=== PATIENT | female | born 2000 | race Caucasian/White ===

== ENCOUNTER → 2021-01-10 | Outpatient (CLI) | payer BC, OTHER ==
[~2021-01-10] MED LIST: CETI10CH PO; PERCOCET PO; TEST200I14 SC; VENL37.598 PO
== END ==
LOC: M LABSMTC 10:30
PROVIDERS: ATTEND Anesthesiology
DX: Z01.818 Encounter for other preprocedural examination (principal); Z11.52 Encounter for screening for COVID-19

== ENCOUNTER 2021-01-15 07:44 | Observation (INO) | payer BC, OTHER ==
[~2021-01-15] VITALS: Ht 160 cm; Wt 76.7 kg
[~2021-01-15 07:44] MED LIST changes: +HEPARIN SOD (PORCINE) 5000UNITS/ML 1ML VIAL/SYRINGE SQ ONE; +LIDOCAINE 1% MDV 20ML VIAL SQ PRN; +LR 1,000 ML IV ONE; -PERCOCET PO; +ceFAZolin SOD 2 GM in IV 1 EA IV ONE
[2021-01-15] MEDS ORDERED: MIDAZOLAM INJ 2MG/2ML VIAL (J2250 PER 1MG) As Ordered ONE (08:39)
[2021-01-15] MEDS ORDERED: LIDOCAINE 2% 100MG/5ML SDV (FOR ANES.) As Ordered ONE (08:39)
[2021-01-15] MEDS ORDERED: ROCURONIUM BROMIDE 50 MG/5 ML VIAL As Ordered ONE (08:39)
[2021-01-15] MEDS ORDERED: ONDANSETRON 4MG/2ML VIAL As Ordered ONE ×2 (08:39→11:24)
[2021-01-15] MEDS ORDERED: dexameTHASONE 4 MG/ML 1ML VIAL (J1100 PER 1MG) As Ordered ONE (08:39)
[2021-01-15] MEDS ORDERED: propofoL 200 MG/20 ML VIAL As Ordered ONE (08:39)
[2021-01-15] MEDS ORDERED: fentaNYL 250 MCG/5 ML INJECTION (J3010) As Ordered ONE (08:39)
[2021-01-15] MEDS ORDERED: BUPIVACAINE LIPOSOME/PF 1.3% 20ML VIAL (13.3MG/ML)(EXPAREL)(C9290 PER1MG) As Ordered ONE (09:42)
[2021-01-15] MEDS ORDERED: GENTAMICIN SULF 80MG/2ML VIAL As Ordered ONE (09:42)
[2021-01-15] MEDS ORDERED: LIDOCAINE 1% MDV 20ML VIAL As Ordered ONE (09:43)
[2021-01-15] MEDS ORDERED: EPINEPHrine INJ 1 MG/ML 1ML AMP As Ordered ONE (09:43)
[2021-01-15] MEDS ORDERED: ePHEDrine SULFATE 25 MG/5 ML(5MG/ML) SYRINGE As Ordered ONE ×3 (11:05→12:08)
[2021-01-15] MEDS ORDERED: ACETAMINOPHEN 1000MG 100ML IV BTL (OFIRMEV) (J0131 PER 10MG) As Ordered ONE (11:12)
[2021-01-15] MEDS ORDERED: LACRILUBE (AKWA TEARS) OPHTH OINT 3.5 GM As Ordered ONE (11:12)
[2021-01-15] MEDS ORDERED: HYDROmorphone HCL 2 MG/ML 1ML VIAL As Ordered ONE (11:24)
[2021-01-15] MEDS ORDERED: SUGAMMADEX SODIUM 500 MG/5 ML VIAL (BRIDION) As Ordered ONE (11:24)
[2021-01-15] MEDS ORDERED: PHENYLephrine 500MCG 5ML (100MCG/ML) SYRINGE As Ordered ONE (11:51)
[2021-01-15] MEDS ORDERED: ESMOLOL INJ 100MG/10ML VIAL As Ordered ONE (15:03)
--- NOTE | 2021-01-15 15:04 | POST-OPPD ---
Postoperative Procedure Note Date Of Procedure: Jan 15, 2021 PREOPERATIVE DIAGNOSIS: Bilateral breast hypertrophy, gender dysphoria POSTOPERATIVE DIAGNOSIS: same PROCEDURE: Chest masculinization procedure with subcutaneous lipectomy via suction assisted lipectomy with direct excision. SURGEON: Dr Olsen ANESTHESIA: General ESTIMATED BLOOD LOSS: 150 cc FINDINGS: female chest distribution SPECIMENS: Right breast 148 gm, liposuction fluid 300 cc. Left breast 226 gm liposuction fluid 200 cc. COMPLICATIONS: none REPLACED: none DRAINS: 10 mm DAVIS x 2 POSTOPERATIVE CONDITION: stable LEOPOLDO OLSEN DO Jan 15, 2021 15:04
[2021-01-15] MEDS ORDERED: ACETAMINOPHEN TAB 650MG DOSE (2X325MG) PO PRN (15:05)
[2021-01-15] MEDS ORDERED: ONDANSETRON 4MG/2ML VIAL IV PRN ×2 (15:05→15:20)
[2021-01-15] MEDS ORDERED: PERCOCET 5MG/325MG TAB PO PRN (15:05)
--- NOTE | 2021-01-15 15:05 | ROOPDOC ---
[facility] Report Of Operation Report of Operation DATE OF PROCEDURE: 01/15/21 PREOPERATIVE DIAGNOSIS: Bilateral breast hypertrophy, gender dysphoria POSTOPERATIVE DIAGNOSIS: same PROCEDURE: Chest masculinization procedure with subcutaneous lipectomy via suction assisted lipectomy with direct excision. SURGEON: Dr Olsen ANESTHESIA: General ESTIMATED BLOOD LOSS: 150 cc FINDINGS: female chest distribution SPECIMENS: Right breast 148 gm, liposuction fluid 300 cc. Left breast 226 gm liposuction fluid 200 cc. COMPLICATIONS: none REPLACED: none DRAINS: 10 mm DAVIS x 2 POSTOPERATIVE CONDITION: stable DESCRIPTION OF PROCEDURE: DESCRIPTION OF PROCEDURE: This is a 20-year-old transgender male who presents with female chest distribution. Patient is scheduled for chest masculinization procedure via bilateral subcutaneous mastectomies using suction assisted lipectomy and direct excision. Risks, benefits, and alternatives of the procedure discussed with patient in details and he is ready to proceed.On the day of surgery, he was marked in the upright position and then he was brought into the operating room, placed in supine position. Preoperative antibiotics given, sequential stockings placed on the lower calves. General anesthesia was induced. He was prepped and draped in the usual sterile fashion. We started our procedure with making a stab incision on the right lateral chest. Tumescent solution was infiltrated in the left breast, 400 mL total. Vaser Liposuction was used for melting down the fat and breaking out the scar tissue on the right side, and we used 3.7 three-ring cannula 5 rings with 80% of the power for 3.5 minutes. After that part of the procedure was completed, we used regular suction-assisted lipectomy to remove the rest of the liposuction, total 300 cc. Then, we made an infra-areolar incision, dissection of glandular tissue was started out using electrocautery under direct vision with a lighted retractor. The breast tissue was completely excised using electrocautery total 148 g. The pectoralis muscle was in good condition. The skin was in good condition. Hemostasis was obtained using electrocautery. Wound is irrigated with normal saline solution. Then, 10 mm DAVIS drain was placed through the initial stab incision that was done for the liposuction and placed in the cavity and then the wound was closed with interrupted #4-0 Monocryl sutures and #5-0 plain gut sutures. We started our procedure with making a stab incision on the left lateral chest. Tumescent solution was infiltrated in the left breast, 350 mL total. Vaser Liposuction was used for melting down the fat and breaking out the scar tissue on the right side, and we used 3.7 three-ring cannula 5 rings with 80% of the power for 3.5 minutes. After that part of the procedure was completed, we used regular suction-assisted lipectomy to remove the rest of the liposuction, total 200 cc. Then, we made an supra-areolar incision, dissection of glandular tissue was started out using electrocautery under direct vision with a lighted retractor. The breast tissue was completely excised using electrocautery total 226g. The pectoralis muscle was in good condition. The skin was in good condition. Hemostasis was obtained using electrocautery. Wound is irrigated with normal saline solution. Then, 10 mm DAVIS drain was placed through the initial stab incision that was done for the liposuction and placed in the cavity and then the wound was closed with interrupted #4-0 Monocryl sutures and #5-0 plain gut sutures. Good symmetry was achieved. Xeroform dressing to breasts. A bulky dressing and a compression dressing was placed. The patient was extubated in the operating room without any difficulty, transferred to the recovery room in stable condition. . LEOPOLDO OLSEN DO Jan 15, 2021 15:05
[2021-01-15] MEDS ORDERED: HYDROMORPHONE HCL 0.5 MG/ 0.5 ML SYRINGE (J1170 PER 1) IV PRN (15:20)
[2021-01-15] MEDS ORDERED: oxyCODONE 5MG TAB PO PRN (15:20)
[2021-01-15] MEDS ORDERED: fentaNYL 100 MCG/2 ML INJECTION (J3010) IV PRN (15:20)
[2021-01-15] MEDS ORDERED: LR 1,000 ML IV SCH (15:20)
[2021-01-15] MEDS: LR 1,000 ML IV SCH (16:10)
[2021-01-15 16:30] VITALS: BP 111/86
[2021-01-15 17:00] VITALS: BP 116/83
[2021-01-15] MEDS: ceFAZolin SOD 1 GM in D5W MINI-BAG PLUS 50 ML IV SCH (18:15)
[2021-01-15 18:30] VITALS: BP 116/83
[2021-01-15 19:30] VITALS: BP 133/91
[2021-01-15] MEDS: KETOROLAC TROMETHAMINE 10 MG TAB PO PRN (19:38)
[2021-01-15 20:30] VITALS: BP 143/82
[2021-01-15 21:30] VITALS: BP 135/84
[2021-01-16] MEDS: ceFAZolin SOD 1 GM in D5W MINI-BAG PLUS 50 ML IV SCH ×2 (02:07→09:24)
[2021-01-16] MEDS: LR 1,000 ML IV SCH (02:07)
[2021-01-16] MEDS: KETOROLAC TROMETHAMINE 10 MG TAB PO PRN (02:11)
[2021-01-16 06:00] VITALS: BP 137/94
[2021-01-16] MEDS ORDERED: VENLAFAXINE **XR** 37.5 MG CAPSULE PO SCH (09:00)
[2021-01-16] MEDS ORDERED: CETIRIZINE (ZyrTEC) 10 MG TAB PO SCH (09:00)
--- NOTE | 2021-01-16 09:18 | IPNPDOC ---
Subjective General Date Seen: Jan 16, 2021 Subject Chief Complaint/History The patient is a 20-year-old transgender male admitted with a reason for visit of Gender Identity Disorder,Bilateral Breast Hypertro. Patient status post chest masculinization procedure postop day 1. He is doing well today. Pain is tolerable controlled with Toradol. Patient is ambulating, tolerating regular diet. Current Medications Current Medications Current Medications Medications (Trade) Dose Ordered Sig/Ana Route PRN Reason Start Time Stop Time Status Last Admin Dose Admin Acetaminophen (Tylenol Tab) 650 mg Q6H PRN PO MILD PAIN (PS 1-4) 01/15/21 15:05 Cefazolin Sodium 1 gm/Dextrose 50 ml @ 100 mls/hr Q8H IV 01/15/21 18:00 01/16/21 02:07 Cetirizine HCl (ZyrTEC) 10 mg DAILY PO 01/16/21 09:00 Fentanyl Citrate (Sublimaze) 25 mcg Q5MP PRN IV PAIN LEVEL 8-10 01/15/21 15:20 01/15/21 17:20 DC Hydromorphone HCl (Dilaudid) 0.2 mg Q5MP PRN IV PAIN LEVEL 5-7 01/15/21 15:20 01/15/21 17:20 DC Ketorolac Tromethamine (ToRADol) 10 mg Q6HP PRN PO MODERATE PAIN (PS 5-7) 01/15/21 15:05 01/20/21 15:04 01/16/21 02:11 Lactated Ringer's 1,000 ml @ 75 mls/hr [id number] IV 01/15/21 15:05 01/16/21 02:07 Lactated Ringer's 1,000 ml @ 100 mls/hr Q10H IV 01/15/21 15:20 01/15/21 17:20 DC Lidocaine HCl (LIDOCAINE 1% MDV 20ml) 0.1 ml ONCE PRN SQ DISCOMFORT BEFORE IV START 01/15/21 06:00 01/15/21 15:17 DC Ondansetron HCl (ZOFRAN INJection) 4 mg Q4H PRN IV NAUSEA OR VOMITING 01/15/21 15:05 Ondansetron HCl (ZOFRAN INJection) 4 mg Q4HP PRN IV NAUSEA OR VOMITING 01/15/21 15:20 01/15/21 17:20 DC Oxycodone HCl (Roxicodone, Oxyir) 5 mg ASDIRECTED PRN PO PAIN LEVEL 1-4 01/15/21 15:20 01/15/21 17:20 DC Oxycodone/ Acetaminophen (Percocet 5mg/ 325mg Tablet) 2 tab Q4HP PRN PO PAIN LEVEL 8-10 01/15/21 15:05 Venlafaxine HCl (Effexor Xr) 37.5 mg DAILY PO 01/16/21 09:00 Allergies Coded Allergies: No Known Allergies (Unverified , 01/15/21) Objective Physical Examination Examination GENERAL APPEARANCE:Patient seen, laying in bed, awake, alert, and oriented. Comfortable, in no acute distress. SKIN: Warm and moist. BREAST: Right and left soft, non-tender incisions intact. DAVIS drains: 25/25 cc/24 hr. NAC: Viable, warm, symmetrical, mild post-op ecchymosis, no expanding hemato ma. HEENT: Normocephalic, atraumatic. [place] palpebral conjunctiva, anicteric sclerae. Lips and mucosa appear moist. NECK: Supple, no thyromegaly. No obvious jugular venous distention. LUNGS: Clear to auscultation bilaterally. No wheezing appreciated. HEART: No chest wall abnormalities. Regular rate and rhythm with no murmurs appreciated. EXTREMITIES: No edema identified. No calf tenderness. Vital Signs Vital Signs Date Time Temp Pulse Resp B/P (MAP) Pulse Ox O2 Delivery O2 Flow Rate FiO2 01/16/21 06:00 98.2 75 18 137/94 (108) 99 Room Air 01/15/21 15:15 2.0 I&Os I&O- Last 24 Hours up to 6 AM 01/16/21 05:59 Intake Total 3975 ml Output Total 695 ml Balance 3280 ml Impression 20-year-old transgender male status post chest masculinization procedure postop day 1. He is doing well today. Stable for discharge. Dressings changed today. Home instructions given to the patient. Follow-up plastic surgery after discharge. Plan / VTE VTE Prophylaxis Ordered?: Yes LEOPOLDO OLSEN DO Jan 16, 2021 09:18
[2021-01-16] MEDS ORDERED: PERCOCET PO (09:26)
== END 2021-01-16 11:15 | disposition home or self-care (01) ==
LOC: M SDC 07:44 → M MS5PR 07:45
PROVIDERS: ADMIT Plastic Surgery Surgery of the Hand; ATTEND Plastic Surgery Surgery of the Hand
DX: N62 Hypertrophy of breast (principal); F64.9 Gender identity disorder, unspecified; F41.9 Anxiety disorder, unspecified; F32.9 Major depressive disorder, single episode, unspecified; Z79.899 Other long term (current) drug therapy
CPT/HCPCS: 19318; 81025; 88300; 88305; 96365; 96366; J0131; J0171; J0690; J1100; J1170; J1644; J2250; J2370; J2405; J3010

== ENCOUNTER 2022-02-27 06:10 | Observation (INO) | payer BC, OTHER ==
[~2022-02-27] VITALS: Ht 160 cm; Wt 85.9 kg
[2022-02-27] VITALS (9 sets, daily range): BP systolic 99–141; BP diastolic 64–89
[~2022-02-27 06:10] MED LIST changes: -LIDOCAINE 1% MDV 20ML VIAL SQ PRN; -LR 1,000 ML IV ONE; +PERCOCET PO; +VENL75CA47 PO; -ceFAZolin SOD 2 GM in IV 1 EA IV ONE
[2022-02-27] MEDS ORDERED: LR 1,000 ML IV SCH ×2 (06:25→09:40)
[2022-02-27] MEDS ORDERED: ceFAZolin SOD 2 GM in IV 1 EA IV ONE ×2 (06:45→12:00)
[2022-02-27] MEDS ORDERED: CETI-24 PO (07:12)
[2022-02-27] MEDS ORDERED: HOME MED LIST COMPLETE! XX SCH (07:15)
[2022-02-27] MEDS ORDERED: LIDOCAINE 1% MDV 20ML VIAL As Ordered ONE (07:17)
[2022-02-27] MEDS ORDERED: BUPIVACAINE HCL 0.25% 10ML VIAL As Ordered ONE (07:17)
[2022-02-27] MEDS ORDERED: BUPIVACAINE LIPOSOME/PF 1.3% 20ML VIAL (13.3MG/ML)(EXPAREL) As Ordered ONE (07:17)
[2022-02-27] MEDS ORDERED: EPINEPHrine INJ 1 MG/ML 1ML AMP As Ordered ONE (07:18)
[2022-02-27] MEDS ORDERED: LIDOCAINE 5% OINT 30GM TUBE As Ordered ONE (07:21)
[2022-02-27] MEDS ORDERED: fentaNYL 250 MCG/5 ML INJECTION As Ordered ONE (07:21)
[2022-02-27] MEDS ORDERED: propofoL 200 MG/20 ML VIAL As Ordered ONE (07:21)
[2022-02-27] MEDS ORDERED: ONDANSETRON 4MG 2ML VIAL As Ordered ONE (07:21)
[2022-02-27] MEDS ORDERED: LIDOCAINE 2% 100MG/5ML SDV (FOR ANES.) As Ordered ONE (07:21)
[2022-02-27] MEDS ORDERED: MIDAZOLAM INJ 2MG/2ML VIAL As Ordered ONE (07:21)
[2022-02-27] MEDS ORDERED: ROCURONIUM BROMIDE 50MG/5ML VIAL As Ordered ONE (07:21)
[2022-02-27] MEDS ORDERED: ceFAZolin 1GM VIAL As Ordered ONE ×2 (07:52→07:54)
[2022-02-27] MEDS ORDERED: ACETAMINOPHEN 1000MG 100ML IV BAG As Ordered ONE (08:07)
[2022-02-27] MEDS ORDERED: GLYCOPYRROLATE INJ 0.2 MG/ML 2 ML VIAL As Ordered ONE (08:27)
[2022-02-27] MEDS ORDERED: ONDANSETRON 4MG 2ML VIAL IV PRN ×2 (09:40→09:45)
[2022-02-27] MEDS ORDERED: oxyCODONE 5MG TAB PO PRN (09:40)
[2022-02-27] MEDS ORDERED: HYDROMORPHONE HCL 0.5 MG/ 0.5 ML SYRINGE IV PRN (09:40)
[2022-02-27] MEDS ORDERED: fentaNYL 100 MCG/2 ML INJECTION IV PRN (09:40)
[2022-02-27] MEDS ORDERED: ACETAMINOPHEN TAB 650MG DOSE (2X325MG) PO PRN (09:45)
[2022-02-27] MEDS ORDERED: traMADol 50 MG TAB PO PRN (09:45)
[2022-02-27] MEDS ORDERED: PERCOCET 5MG/325MG TAB PO PRN (09:45)
[2022-02-27] MEDS ORDERED: ePHEDrine SULFATE 25 MG/5 ML(5MG/ML) SYRINGE As Ordered ONE (09:50)
[2022-02-27] MEDS: LR 1,000 ML IV SCH ×2 (11:39→19:41)
[2022-02-28 02:00] VITALS: BP 109/59
[2022-02-28 05:49] VITALS: BP 92/59
[2022-02-28] MEDS ORDERED: TRAM50TA2 PO (09:52)
[2022-02-28] MEDS: LR 1,000 ML IV SCH (12:25)
== END 2022-02-28 14:20 | disposition home or self-care (01) ==
LOC: M SDC 06:10 → M MS5PR 06:11
PROVIDERS: ADMIT Plastic Surgery Surgery of the Hand; ATTEND Plastic Surgery Surgery of the Hand
DX: F64.9 Gender identity disorder, unspecified (principal); L90.5 Scar conditions and fibrosis of skin; F41.9 Anxiety disorder, unspecified; F32.A Depression, unspecified; F12.10 Cannabis abuse, uncomplicated; Z79.899 Other long term (current) drug therapy
CPT/HCPCS: 19380; 36415; 81025; 86803; 87389; 88300; 96365; C9290; J0131; J0171; J0690; J1100; J2250; J2405; J3010; S0020